=== PATIENT | male | born 1960 | race Caucasian/White ===

== ENCOUNTER 2019-03-28 13:20 | Emergency (ER) | payer MEDICAID, OTHER ==
[~2019-03-28] VITALS: Ht 180.3 cm; Wt 97.1 kg
[2019-03-28 13:24] VITALS: BP 154/86
[2019-03-28] MEDS ORDERED: KETOROLAC 60 MG/2 ML VIAL IM ONE (13:40)
--- NOTE | 2019-03-28 13:40 | NUR ---
XRAY AT BEDSIDE.
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
[2019-03-28 14:33] VITALS: BP 145/67
== END 2019-03-28 14:32 | disposition home or self-care (01) ==
LOC: MED 13:20
DX: S50.02XA Contusion of left elbow, initial encounter (principal); X58.XXXA Exposure to other specified factors, initial encounter; Y93.89 Activity, other specified; Y92.89 Other specified places as the place of occurrence of the external cause; Y99.8 Other external cause status
CPT/HCPCS: 73080; 96372; 99283; J1885

== ENCOUNTER 2020-01-12 08:32 | Emergency (ER) | payer OTHER ==
[~2020-01-12] VITALS: Ht 182.9 cm; Wt 98.9 kg
--- NOTE | 2020-01-12 08:40 | NUR ---
Patient taken to bed 8 via w/c
[2020-01-12 08:51] VITALS: BP 162/101
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
[2020-01-12] MEDS ORDERED: KETOROLAC 30 MG/ML VIAL IM ONE (08:55)
[2020-01-12 09:19] VITALS: BP 162/101
--- NOTE | 2020-01-12 09:19 | NUR ---
Patient discharged with v/s stable. Written and verbal after care instructions given and explained. Patient alert, oriented and verbalized understanding of instructions. Ambulatory with steady gait. All questions addressed prior to discharge. ID band removed. Patient advised to follow up with PMD. Rx of ibuprofen, norco given. Patient educated on indication of medication including possible reaction and side effects. Opportunity to ask questions provided and answered.
== END 2020-01-12 09:19 | disposition home or self-care (01) ==
LOC: MED 08:32
DX: G89.29 Other chronic pain (principal); M54.5 Low back pain; I10 Essential (primary) hypertension
CPT/HCPCS: 96372; 99283; J1885

== ENCOUNTER 2020-01-24 06:11 | Emergency (ER) | payer OTHER ==
[~2020-01-24] VITALS: Ht 175.3 cm; Wt 86.2 kg
--- NOTE | 2020-01-24 06:15 | NUR ---
PT TAKEN TO BED 7
--- NOTE | 2020-01-24 06:27 | NUR ---
Dr. Mason examining patient.
[2020-01-24 06:30] VITALS: BP 130/73
[2020-01-24] MEDS ORDERED: MORPHINE SULFATE 4 MG/ML SYR IM ONE (06:30)
[2020-01-24] MEDS ORDERED: KETOROLAC 60 MG/2 ML VIAL IM ONE (06:30)
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
[2020-01-24 06:57] VITALS: BP 130/73
== END 2020-01-24 06:57 | disposition left against medical advice (07) ==
LOC: MED 06:11
DX: M54.5 Low back pain (principal); I10 Essential (primary) hypertension
CPT/HCPCS: 96372; 99284; J1885; J2270

== ENCOUNTER 2022-01-31 14:47 | Emergency (ER) | payer OTHER ==
[~2022-01-31] VITALS: Ht 182.9 cm; Wt 96.6 kg
[2022-01-31 14:51] VITALS: BP 147/92
[2022-01-31] MEDS ORDERED: methocarbamoL 500 MG TAB PO STA (15:18)
[2022-01-31] MEDS ORDERED: predniSONE 20 MG TAB PO ONE (15:20)
[2022-01-31] MEDS ORDERED: MORPHINE SULFATE 4 MG/ML SYR IM ONE (15:20)
[2022-01-31] MEDS ORDERED: IBUPROFEN 800 MG TAB PO ONE (15:20)
[2022-01-31] MEDS ORDERED: LIDOCAINE 5% 1 EA PATCH TP SCH (15:20)
[2022-01-31] MEDS ORDERED: NAPR-54 PO (15:23)
[2022-01-31] MEDS ORDERED: LID5T TP (15:23)
[2022-01-31] MEDS ORDERED: METH-1681 PO (15:23)
[2022-01-31] MEDS ORDERED: PRED20TA5 PO (15:25)
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
--- NOTE | 2022-01-31 16:54 | NUR ---
Patient discharged with v/s stable. Written and verbal after care instructions given and explained. Patient alert, oriented and verbalized understanding of instructions. Ambulatory with steady gait. All questions addressed prior to discharge. ID band removed. Patient advised to follow up with PMD. Rx of LIDOCAINE, ROBAXIN, NAPROXYN, PREDNISONE given. Patient educated on indication of medication including possible reaction and side effects. Opportunity to ask questions provided and answered.
== END 2022-01-31 16:54 | disposition home or self-care (01) ==
LOC: MED 14:47
DX: S29.019A Strain of muscle and tendon of unspecified wall of thorax, initial encounter (principal); M54.50 Low back pain, unspecified; G89.29 Other chronic pain; I10 Essential (primary) hypertension; Z79.899 Other long term (current) drug therapy; Z98.890 Other specified postprocedural states; X58.XXXA Exposure to other specified factors, initial encounter; Y93.89 Activity, other specified; Y92.89 Other specified places as the place of occurrence of the external cause; Y99.8 Other external cause status
CPT/HCPCS: 96372; 99284; J2270; J7512